=== PATIENT | male | born 1975 | race American Indian/Alaskan Native ===

== ENCOUNTER 2019-06-26 00:44 | Emergency (ER) | payer SELFPAY ==
--- NOTE | 2019-06-26 01:23 | Emergency Department Report ---
ED Seizure HPI - General Chief Complaint: Seizure Stated Complaint: SEIZURE Time Seen by Provider: 06/26/19 01:18 Source: patient, EMS Mode of arrival: Ambulatory Limitations: No Limitations - History of Present Illness Initial Comments: Patient is a 43-year-old male presents emergency room with complaints of seizure. Patient states she was at work and had a seizure 1. Patient states he is noncompliant with his medication for years. Patient states he hasn't had a seizure a few years. Patient states he drinks daily, at 1 -2 beers per day. Patient states that he can't afford his seizure medications. Patient states the seizure happened at work. Patient states it was witnessed by his coworkers. Patient states that his co-workers told him that he did not hit his head or fall. Patient states he was sitting in a chair when he sees. Patient denies any pain. Patient denies complaints. Patient denies headache. Patient denies confusion. Patient's chest pain. Patient denies shortness of breath. MD Complaint: seizure -: Sudden Description of Episode: loss of consciousness, tonic-clonic movement -: second(s) Witnessed:: Yes Trauma: No Seizure History: known seizure disorder, history of non-compliance Place: work Possible Precipitating Event: medication Associated Symptoms: denies other symptoms. denies: chest pain, confusion, cough, diaphoresis, fever/chills, loss of appetite, malaise, rash, shortness of breath, syncope, weakness, tongue injury, shoulder dislocation Treatments Prior to Arrival: none - Related Data Previous Rx's Medication Instructions Recorded Last Taken Type Phenytoin [Dilantin] 100 mg PO Q12HR 30 Days #60 capsule 06/26/19 Unknown Rx Allergies Allergy/AdvReac Type Severity Reaction Status Date / Time No Known Allergies Allergy Unverified 06/26/19 01:06 ED Review of Systems ROS: Stated complaint: SEIZURE Other details as noted in HPI Constitutional: denies: chills, fever Eyes: denies: eye pain, eye discharge, vision change ENT: denies: ear pain, throat pain Respiratory: denies: cough, shortness of breath, wheezing Cardiovascular: denies: chest pain, palpitations Endocrine: no symptoms reported Gastrointestinal: denies: abdominal pain, nausea, diarrhea Genitourinary: denies: urgency, dysuria Musculoskeletal: denies: back pain, joint swelling, arthralgia Skin: denies: rash, lesions Neurological: denies: headache, weakness, paresthesias Psychiatric: denies: anxiety, depression Hematological/Lymphatic: denies: easy bleeding, easy bruising ED Past Medical Hx - Past Medical History Previous Medical History?: Yes Hx Seizures: Yes - Surgical History Past Surgical History?: No - Family History Family history: no significant - Social History Smoking Status: Current Every Day Smoker Substance Use Type: Alcohol, Marijuana - Medications Home Medications: Home Medications Medication Instructions Recorded Confirmed Last Taken Type Phenytoin [Dilantin] 100 mg PO Q12HR 30 Days #60 capsule 06/26/19 Unknown Rx ED Physical Exam - General Limitations: No Limitations General appearance: alert, in no apparent distress - Head Head exam: Present: atraumatic, normocephalic - Eye Eye exam: Present: normal appearance, PERRL, EOMI Pupils: Present: normal accommodation - ENT ENT exam: Present: mucous membranes moist - Neck Neck exam: Present: normal inspection, full ROM. Absent: tenderness, meningismus - Respiratory Respiratory exam: Present: normal lung sounds bilaterally. Absent: respiratory distress, wheezes, rales - Cardiovascular Cardiovascular Exam: Present: regular rate, normal rhythm. Absent: systolic murmur, diastolic murmur, rubs, gallop - GI/Abdominal GI/Abdominal exam: Present: soft, normal bowel sounds. Absent: distended, tenderness, guarding - Rectal Rectal exam: Present: deferred - Extremities Exam Extremities exam: Present: normal inspection, full ROM. Absent: tenderness - Back Exam Back exam: Present: normal inspection, full ROM. Absent: tenderness - Neurological Exam Neurological exam: Present: alert, oriented X3, CN II-XII intact, normal gait - Psychiatric Psychiatric exam: Present: normal affect, normal mood - Skin Skin exam: Present: warm, dry, intact, normal color. Absent: rash ED Course Vital Signs 06/26/19 06/26/19 01:03 02:30 Temperature 97.2 F L 97.8 F Pulse Rate 71 65 Respiratory 18 16 Rate Blood Pressure 138/105 Blood Pressure 136/91 [Right] O2 Sat by Pulse 98 100 Oximetry - Reevaluation(s) Reevaluation #1: I discussed all results to patient. Discussed plan of care patient. Patient agrees with plan of care. Patient will be discharged home. Patient given discharge instructions. Patient voiced understanding of discharge. 06/26/19 02:24 ED Medical Decision Making - Lab Data Result diagrams: 06/26/19 01:42 06/26/19 01:42 - Medical Decision Making Patient is a 43-year-old male that presents emergency room with seizure activity. Patient had a witnessed seizure at work. Patient seizure witness and no trauma was reported. Patient in by EMS. Patient has a history of seizures and is noncompliant with his seizure medications. Patient takes 100 mg of Dilantin twice a day. Patient hasn't taken his seizure medication due to not being able to afford it and cause. Patient will be given a refill of his prescription. Patient had labs done in the ER and were unremarkable. Patient did not have any further seizure activity in the ER. Patient is stable for discharge. Patient discharged home. - Differential Diagnosis sz. missed meds. Critical care attestation.: If time is entered above; I have spent that time in minutes in the direct care of this critically ill patient, excluding procedure time. ED Disposition Clinical Impression: Seizure, Noncompliance Disposition: TO HOME OR SELFCARE Is pt being admited?: No Does the pt Need Aspirin: No Condition: Stable Instructions: Epilepsy (ED), Recurrent Seizures Adult (ED) Additional Instructions: Patient to follow up with primary care in 2- 3 days. Patient to follow with ne urologist in 2-3 days. Patient to take Dilantin daily as prescribed. Patient to return to ER if condition worsens. Patient to rest. Patient to avoid driving. patient to avoid strenuous exercise until cleared by primary care. Patient to take Tylenol or ibuprofen when necessary for pain. Prescriptions: Phenytoin [Dilantin] 100 mg PO Q12HR 30 Days #60 capsule Referrals: DORINA MCINTOSH MD [Staff Physician] - 2-3 Days Time of Disposition: 02:36
[2019-06-26 01:51] LABS: Hematocrit 43.8 % (35.5-45.6); Mean Corpuscular HGB Conc 34 % (32-34); Mean Corpuscular Volume 99 fl (84-94); Platelet Count 354 K/mm3 (140-440); Red Blood Count 4.44 M/mm3 (3.65-5.03); Red Cell Distribution Width 12.5 % (13.2-15.2)
[2019-06-26 02:14] LABS: Alanine Aminotransferase 17 units/L (7-56); BUN/Creatinine Ratio 10; Blood Urea Nitrogen 8 mg/dL (9-20); Calcium 8.9 mg/dL (8.4-10.2); Hemolysis Index 6
[2019-06-26 02:31] VITALS: BP 136/91
== END 2019-06-26 02:50 | disposition home or self-care (01) ==
LOC: ED 00:44
DX: R56.9 Unspecified convulsions (principal); F17.200 Nicotine dependence, unspecified, uncomplicated; F12.10 Cannabis abuse, uncomplicated
CPT/HCPCS: 36415; 80053; 85027; 99283